=== PATIENT | female | born 1935 | race Caucasian/White ===

== ENCOUNTER 2021-07-23 14:47 | Inpatient (IN) | payer MEDICARE, OTHER ==
[~2021-07-23] VITALS: Ht 167.6 cm; Wt 43.0 kg
[2021-07-23 17:08] LABS: BASOPHILS % (AUTO) 0.7 % (0-1); EOSINOPHILS # (AUTO) 0.1 X10'3 (0-0.9); EOSINOPHILS % (AUTO) 1.3 % (0-6); HEMATOCRIT 37.9 % (35.0-45.0); HEMOGLOBIN 13.1 g/dl (12.0-16.0); LYMPHOCYTES % (AUTO) 15.5 % (21-51); MEAN CORPUSCULAR HEMOGLOBIN 34.2 PG (27.0-31.0); MEAN CORPUSCULAR HGB CONC 34.5 g/dL (33.0-36.5); MEAN PLATELET VOLUME 8.7 FL (7.4-10.4); MONOCYTES # (AUTO) 0.5 X10'3 (0-0.9); MONOCYTES % (AUTO) 8.2 % (2-12); NEUTROPHILS # (AUTO) 4.8 X10'3 (1.8-7.7); NEUTROPHILS % (AUTO) 74.3 % (42-75); PLATELET COUNT 205 X10'3 (140-440); RED BLOOD COUNT 3.83 X10'6 (4.20-5.60); RED CELL DISTRIBUTION WIDTH 12.8 % (11.5-14.5); WHITE BLOOD COUNT 6.4 X10'3 (4.5-11.0)
[2021-07-23 17:14] LABS: ALANINE AMINOTRANSFERASE 27 U/L (12-78); ALBUMIN/GLOBULIN RATIO 1.1 (1.1-1.5); ALKALINE PHOSPHATASE 72 IU/L (46-116); ANION GAP 8 (8-16); ASPARTATE AMINO TRANSFERASE 15 U/L (10-37); BILIRUBIN,TOTAL 1.6 MG/DL (0.1-1.0); BLOOD UREA NITROGEN 24 MG/DL (7-18); BUN/CREATININE RATIO 23.8 (6.6-38.0); CALCIUM 8.6 MG/DL (8.5-10.1); CHLORIDE 101 MMOL/L (99-107); CREATININE 1.01 MG/DL (0.40-0.90); GLUCOSE 90 MG/DL (70-104); POTASSIUM 3.8 MMOL/L (3.5-5.1); SODIUM 138 MMOL/L (135-145); TOTAL PROTEIN 7.8 G/DL (6.4-8.2); eGFR 52 ML/MIN
[2021-07-23 17:20] LABS: MAGNESIUM 2.4 MG/DL (1.5-2.4)
[2021-07-23 17:36] LABS: CLARITY,URINE SLIGHTLY CLOUDY (Clear); COLOR,URINE YELLOW (Yellow); GLUCOSE, URINE NEGATIVE (Neg); KETONES,URINE NEGATIVE (Neg); LEUKOCYTE ESTERASE ,URINE NEGATIVE (Neg); NITRITES, URINE NEGATIVE (Neg); OCCULT BLOOD,URINE NEGATIVE (Neg); PROTEIN,URINE NEGATIVE (Neg); UROBILINOGEN,URINE 0.2 E.U/dL (0.2-1.0)
[2021-07-23 17:38] LABS: UA COLLECTION TYPE VOIDED
[2021-07-23 17:46] LABS: BACTERIA,URINE NONE SEEN /HPF (Neg); MUCUS STRANDS FEW /LPF (Neg); RBC,URINE NONE SEEN /HPF (0-2); SQUAMOUS EPITHELIAL CELL,UR FEW /LPF (FEW); WBC,URINE 0-4 /HPF (0-4)
[2021-07-23 17:55] LABS: PARTIAL THROMBOPLASTIN TIME 28 SECONDS (22-32)
[2021-07-23] MEDS ORDERED: acetaminophen 325mg tablet PO PRN (17:55)
[2021-07-23] MEDS ORDERED: magnesium 4gm in 100ml NS 100 ML IV PRN (17:55)
[2021-07-23] MEDS ORDERED: ondansetron/PF 4mg/2ml inj IV PRN (17:55)
[2021-07-23] MEDS ORDERED: magnesium hydroxide 30ml (MOM) UD suspension PO PRN (17:55)
[2021-07-23] MEDS ORDERED: potassium CL 10mEq/100ml bag 100 ML IV PRN (17:55)
[2021-07-23] MEDS ORDERED: magnesium Cl slow-release 64mg tablet PO PRN (17:55)
[2021-07-23] MEDS ORDERED: mag hydrox/Alum hydrox/simeth 30ml oral suspension PO PRN (17:55)
[2021-07-23] MEDS ORDERED: magnesium 2GM in 50ml NS 50 ML IV PRN (17:55)
[2021-07-23] MEDS ORDERED: potassium Cl 20 mEq SR tablet PO PRN ×2 (17:55)
[2021-07-23] MEDS ORDERED: LEVO88TA2 PO (18:04)
[2021-07-23] MEDS: normal saline 1000ml 1,000 ML IV SCH (18:05)
--- NOTE | 2021-07-23 19:03 | NUR ---
CALLED SPOUSE, JOSEPHINE IN REGARDS TO AT HOME MEDS. LEFT A MESSAFE. WAITING FOR RESPONSE
--- NOTE | 2021-07-23 19:30 | NUR ---
Received report from [employer] SURGEONSANAZ Chavez. Patient to follow shortly.
[2021-07-23] MEDS: docusate sod 100mg capsule PO SCH (19:55)
[2021-07-23] MEDS: HYDROmorphone/PF 0.2 MG/ML SYRINGE IV PRN (19:56)
[2021-07-23] MEDS: K and/or MAG REPLACEMENT MC SCH (20:00)
[2021-07-23 22:00] VITALS: BP 119/77
[2021-07-24] VITALS (25 sets, daily range): BP systolic 124–169; BP diastolic 76–101
[2021-07-24] MEDS: normal saline 1000ml 1,000 ML IV SCH ×2 (03:48→14:04)
[2021-07-24] MEDS: HYDROmorphone/PF 0.2 MG/ML SYRINGE IV PRN (03:48)
[2021-07-24] MEDS ORDERED: SYN0.088T PO (04:37)
[2021-07-24 06:51] LABS: BASOPHILS % (AUTO) 0.5 % (0-1); EOSINOPHILS # (AUTO) 0.1 X10'3 (0-0.9); EOSINOPHILS % (AUTO) 1.1 % (0-6); HEMATOCRIT 32.8 % (35.0-45.0); HEMOGLOBIN 11.4 g/dl (12.0-16.0); LYMPHOCYTES % (AUTO) 12.4 % (21-51); MEAN CORPUSCULAR HEMOGLOBIN 34.8 PG (27.0-31.0); MEAN CORPUSCULAR HGB CONC 34.8 g/dL (33.0-36.5); MEAN PLATELET VOLUME 8.8 FL (7.4-10.4); MONOCYTES # (AUTO) 0.8 X10'3 (0-0.9); MONOCYTES % (AUTO) 9.7 % (2-12); NEUTROPHILS % (AUTO) 76.3 % (42-75); PLATELET COUNT 173 X10'3 (140-440); RED BLOOD COUNT 3.28 X10'6 (4.20-5.60); RED CELL DISTRIBUTION WIDTH 12.5 % (11.5-14.5); WHITE BLOOD COUNT 7.8 X10'3 (4.5-11.0)
[2021-07-24 07:08] LABS: ANION GAP 9 (8-16); BLOOD UREA NITROGEN 18 MG/DL (7-18); BUN/CREATININE RATIO 19.8 (6.6-38.0); CALCIUM 8.1 MG/DL (8.5-10.1); CHLORIDE 104 MMOL/L (99-107); CREATININE 0.91 MG/DL (0.40-0.90); GLUCOSE 95 MG/DL (70-104); SODIUM 138 MMOL/L (135-145); TOTAL CARBON DIOXIDE 25.5 MMOL/L (24-32); eGFR 58 ML/MIN
[2021-07-24] MEDS: enoxaparin 40mg/0.4ml syringe SUBCUT SCH (08:00)
[2021-07-24] MEDS: docusate sod 100mg capsule PO SCH ×2 (08:00→20:00)
[2021-07-24] MEDS: K and/or MAG REPLACEMENT MC SCH ×2 (08:27→20:00)
--- NOTE | 2021-07-24 10:22 | NUR ---
Noted pt with a low BMI of 15.4 however current documented wt of 43.18 kg is not scaled. Pt denied wt loss or decreased appetite per malnutrition risk screen with RN. No recent scaled wt hx in EMR and pt currently NPO. Per physical assessment pt with no edema and severe muscle weakness is localized to right leg, likely r/t pt admit for right femoral neck fracture. No concerns for malnutrition at this time. Recommend diet advancement to regular as medically indicated. Will continue to follow. Addendum: 07/24/21 at [address] Amended: Links added.
[2021-07-24] MEDS ORDERED: LEVO75TA PO (10:46)
[2021-07-24] MEDS: levoTHYROXINE 75mcg tablet PO SCH (12:21)
[2021-07-24] MEDS ORDERED: ringers solution, lacted 1,000 ML IV SCH (15:30)
[2021-07-24] MEDS ORDERED: ondansetron/PF 4mg/2ml inj IV PRN (15:30)
[2021-07-24] MEDS ORDERED: meperidine/PF 25mg/ml syringe IV PRN ×3 (15:30)
[2021-07-24] MEDS ORDERED: morphine 4 MG/ML inj SYRINge IV PRN (15:30)
[2021-07-24] MEDS ORDERED: proCHLORperazine 10 MG/2 ml inj IV PRN (15:30)
[2021-07-24] MEDS ORDERED: morphine 2 MG/ML inj. syringe IV PRN (15:30)
[2021-07-24] MEDS ORDERED: fentaNYL/PF 50MCG/1 ML 2ML syringe ONE (15:49)
[2021-07-24] MEDS ORDERED: midazolam 1 mg/ML 2ml injection ONE (15:49)
[2021-07-24] MEDS ORDERED: ceFAZolin 1000mg inj ONE (16:08)
--- NOTE | 2021-07-24 16:30 | NUR ---
Received from OR via , accompanied by Anesthesiologist DR STERN and report given by Anesthesiolgist. PT PRESENTS WITH 20G RIGHT FOREARM, RIGHT HIP DRESSING DRY AND INTACT, VSS. Addendum: 07/24/21 at 1642 by Eliana Olivares RN, RN Amended: Links added.
--- NOTE | 2021-07-24 16:53 | NUR ---
PT'S [facility]SEPH[facility] HOME CELL . I TRIED TO CALL BOTH NUMBER WITH NO ANSWER. Addendum: 07/24/21 at 1658 by Eliana Olivares RN, RN Amended: Links added.
--- NOTE | 2021-07-24 18:00 | NUR ---
I CALLED PT'S WITH UPDATE ON PT. Addendum: 07/24/21 at 1821 by Eliana Olivares RN RN Amended: Links added.
--- NOTE | 2021-07-24 18:00 | NUR ---
Report called to receiving nurse BINH YO. Transferred via HOSPITAL BED RETURNING TO PT ROOM 357A, PT Belongings WERE LEFT IN PT ROOM 357A. Special Issues communicated to receiving nurse. Addendum: 07/24/21 at 1809 by Eliana Olivares RN RN Amended: Links added.
[2021-07-24] MEDS: HYDROmorphone inj. 0.5 MG/0.5 ML DISP.SYRIN IV PRN (20:33)
[2021-07-25] VITALS: BP 141/86
[2021-07-25] MEDS: ceFAZolin/D5W- 1GM premix 50 ML IV SCH ×2 (01:31→07:47)
[2021-07-25] MEDS: normal saline 1000ml 1,000 ML IV SCH ×2 (01:32→08:01)
[2021-07-25 04:00] VITALS: BP 143/89
--- NOTE | 2021-07-25 06:19 | NUR ---
Problems reprioritized. Patient report given, questions answered & plan of care reviewed with Dusty YO.
--- NOTE | 2021-07-25 06:21 | NUR ---
Patient in room [facility]. I have received report from ISIS YO and had the opportunity to ask questions and assume patient care.
[2021-07-25 06:22] LABS: BASOPHILS % (AUTO) 0.6 % (0-1); EOSINOPHILS # (AUTO) 0.1 X10'3 (0-0.9); EOSINOPHILS % (AUTO) 1.1 % (0-6); HEMATOCRIT 33.8 % (35.0-45.0); HEMOGLOBIN 11.5 g/dl (12.0-16.0); LYMPHOCYTES # (AUTO) 0.6 X10'3 (1.1-4.8); MEAN CORPUSCULAR HEMOGLOBIN 34.1 PG (27.0-31.0); MEAN CORPUSCULAR HGB CONC 34.2 g/dL (33.0-36.5); MEAN CORPUSCULAR VOLUME 99.7 FL (78-98); MEAN PLATELET VOLUME 8.8 FL (7.4-10.4); MONOCYTES # (AUTO) 0.5 X10'3 (0-0.9); MONOCYTES % (AUTO) 8.2 % (2-12); NEUTROPHILS # (AUTO) 4.9 X10'3 (1.8-7.7); NEUTROPHILS % (AUTO) 80.1 % (42-75); PLATELET COUNT 183 X10'3 (140-440); RED BLOOD COUNT 3.39 X10'6 (4.20-5.60); RED CELL DISTRIBUTION WIDTH 12.2 % (11.5-14.5); WHITE BLOOD COUNT 6.2 X10'3 (4.5-11.0)
[2021-07-25 06:39] LABS: ALBUMIN 2.9 G/DL (3.4-5.0); ANION GAP 13 (8-16); BLOOD UREA NITROGEN 19 MG/DL (7-18); BUN/CREATININE RATIO 20.9 (6.6-38.0); CALCIUM 8.1 MG/DL (8.5-10.1); CHLORIDE 103 MMOL/L (99-107); CREATININE 0.91 MG/DL (0.40-0.90); GLUCOSE 84 MG/DL (70-104); SODIUM 138 MMOL/L (135-145); TOTAL CARBON DIOXIDE 21.8 MMOL/L (24-32); eGFR 58 ML/MIN
[2021-07-25] MEDS: levoTHYROXINE 75mcg tablet PO SCH (07:47)
[2021-07-25] MEDS: docusate sod 100mg capsule PO SCH ×2 (07:47→20:00)
[2021-07-25] MEDS: enoxaparin 40mg/0.4ml syringe SUBCUT SCH (07:48)
[2021-07-25] MEDS: K and/or MAG REPLACEMENT MC SCH ×2 (08:00→20:00)
[2021-07-25 09:02] VITALS: BP 151/93
[2021-07-25] MEDS ORDERED: normal saline 500ml IV soln 500 ML IV ONE (11:40)
[2021-07-25] MEDS ORDERED: traMADol 50MG tablet PO PRN (11:40)
[2021-07-25 11:56] VITALS: BP 151/98
[2021-07-25] MEDS: traMADol 50MG tablet PO PRN (12:12)
--- NOTE | 2021-07-25 12:38 | NUR ---
per mark wants to dc martha livingston with nursing, will pass this along to night nurse.
--- NOTE | 2021-07-25 16:32 | NUR ---
talked with mark, pt received tramadol due to pain possible related to high BP, got pt up from chair to go to bed and seemed to have been slightly out of it possible due to the tramadol. asked if i could do Tylenol for pain related to tramadol being to much for the pt. pt has generalized weakness and sleepy. charge nurse did a neuro assessment and pt did not show any signs of weakness on one side or the other. pt is stable.
[2021-07-25] MEDS ORDERED: acetaminophen 325mg tablet PO PRN (16:50)
--- NOTE | 2021-07-25 17:40 | NUR ---
DC thomas per MD orders. Placed clean wick per primary nurse.
--- NOTE | 2021-07-25 18:24 | NUR ---
Problems reprioritized. Patient report given, questions answered & plan of care reviewed with Melita javier.
--- NOTE | 2021-07-25 18:30 | NUR ---
Patient in room [facility]. I have received report from SANAZ Morales and had the opportunity to ask questions and assume patient care. Addendum: 07/25/21 at 1935 by Arti Zelaya RN Amended: Links added.
[2021-07-25 19:00] VITALS: BP 156/85
[2021-07-26] MEDS: HYDROmorphone inj. 0.5 MG/0.5 ML DISP.SYRIN IV PRN ×2 (00:26→04:32)
[2021-07-26] MEDS: normal saline 1000ml 1,000 ML IV SCH ×2 (00:27→05:55)
[2021-07-26 00:30] VITALS: BP 165/89
--- NOTE | 2021-07-26 04:37 | NUR ---
pleasantly confused, Addendum: 07/26/21 at 0437 by Arti Zelaya RN Amended: Links added.
--- NOTE | 2021-07-26 06:11 | NUR ---
Problems reprioritized. Patient report given, questions answered & plan of care reviewed with SANAZ Earl. Addendum: 07/26/21 at 0612 by Arti Zelaya RN Amended: Links added.
--- NOTE | 2021-07-26 06:25 | NUR ---
Problems reprioritized. Patient report given, questions answered & plan of care reviewed with SANAZ Sam. Addendum: 07/26/21 at 0626 by Arti Zelaya RN Amended: Links added.
[2021-07-26 06:36] LABS: BASOPHILS % (AUTO) 0.5 % (0-1); EOSINOPHILS # (AUTO) 0.1 X10'3 (0-0.9); EOSINOPHILS % (AUTO) 1.4 % (0-6); HEMATOCRIT 32.1 % (35.0-45.0); HEMOGLOBIN 11.4 g/dl (12.0-16.0); LYMPHOCYTES # (AUTO) 0.7 X10'3 (1.1-4.8); LYMPHOCYTES % (AUTO) 12.4 % (21-51); MEAN CORPUSCULAR HEMOGLOBIN 34.6 PG (27.0-31.0); MEAN CORPUSCULAR HGB CONC 35.4 g/dL (33.0-36.5); MEAN CORPUSCULAR VOLUME 97.7 FL (78-98); MEAN PLATELET VOLUME 8.6 FL (7.4-10.4); MONOCYTES # (AUTO) 0.5 X10'3 (0-0.9); MONOCYTES % (AUTO) 9.1 % (2-12); NEUTROPHILS # (AUTO) 4.6 X10'3 (1.8-7.7); NEUTROPHILS % (AUTO) 76.6 % (42-75); PLATELET COUNT 193 X10'3 (140-440); RED BLOOD COUNT 3.29 X10'6 (4.20-5.60); RED CELL DISTRIBUTION WIDTH 12.3 % (11.5-14.5)
--- NOTE | 2021-07-26 06:38 | NUR ---
Patient in room [facility]. I have received report from whitney javier and had the opportunity to ask questions and assume patient care.
[2021-07-26 06:44] LABS: ANION GAP 11 (8-16); BLOOD UREA NITROGEN 17 MG/DL (7-18); BUN/CREATININE RATIO 20.2 (6.6-38.0); CALCIUM 8.2 MG/DL (8.5-10.1); CHLORIDE 102 MMOL/L (99-107); CREATININE 0.84 MG/DL (0.40-0.90); GLUCOSE 94 MG/DL (70-104); POTASSIUM 3.7 MMOL/L (3.5-5.1); SODIUM 136 MMOL/L (135-145); TOTAL CARBON DIOXIDE 23.1 MMOL/L (24-32); eGFR 64 ML/MIN
[2021-07-26 07:04] VITALS: BP 150/78
[2021-07-26] MEDS: K and/or MAG REPLACEMENT MC SCH (07:23)
[2021-07-26] MEDS: docusate sod 100mg capsule PO SCH (07:48)
[2021-07-26] MEDS ORDERED: levoTHYROXINE 100mcg tablet PO SCH (08:00)
[2021-07-26] MEDS: enoxaparin 40mg/0.4ml syringe SUBCUT SCH (08:12)
[2021-07-26] MEDS: traMADol 50MG tablet PO PRN (10:10)
[2021-07-26 13:10] VITALS: BP 124/84
--- NOTE | 2021-07-26 14:11 | NUR ---
PT DISCHARGED TO [facility]. ATTEMPTED TO CALL REPORT, NO ANSWER FROM [facility].
--- NOTE | 2021-07-26 14:13 | NUR ---
PT DISCHARGED IN STABLE TO CONDITION TO [facility]. IV DC CANULA INTACT. ALL BELONGINGS SENT WITH PT. Addendum: 07/26/21 at 1413 by Selena Mitchell RN Amended: Links added.
== END 2021-07-26 14:01 | DRG 481 ==
LOC: ER 14:47 → SUR 3N 17:57 → UNDOADMIN 17:57 → ER 17:57 → SUR 3N 20:19
PROVIDERS: ADMIT Family Medicine; ATTEND Family Medicine
PROC: 0QH634Z Insertion of Internal Fixation Device into Right Upper Femur, Percutaneous Approach (ICD-10-PCS; principal; 2021-07-24 15:38)
DX: S72.001A Fracture of unspecified part of neck of right femur, initial encounter for closed fracture (principal); E46 Unspecified protein-calorie malnutrition; Z68.1 Body mass index [BMI] 19.9 or less, adult; Z20.822 Contact with and (suspected) exposure to COVID-19; E03.9 Hypothyroidism, unspecified; F03.90 Unspecified dementia, unspecified severity, without behavioral disturbance, psychotic disturbance, mood disturbance, and anxiety; W18.39XA Other fall on same level, initial encounter; I48.91 Unspecified atrial fibrillation; K21.9 Gastro-esophageal reflux disease without esophagitis; R13.10 Dysphagia, unspecified; R55 Syncope and collapse; Z79.890 Hormone replacement therapy; Z90.710 Acquired absence of both cervix and uterus; Y93.89 Activity, other specified; Y92.098 Other place in other non-institutional residence as the place of occurrence of the external cause; Y99.8 Other external cause status
CPT/HCPCS: 36415; 36569; 70450; 71045; 73502; 76000; 76937; 80048; 80053; 81001; 82948; 83735; 83880; 84443; 84484; 85025; 85610; 85730; 87081; 87635; 92508; 92616; 93005; 97110; 97161; 97530; 99285; A4618; A6258; A7000; C1713; G0378; J0690; J1170; J1650; J2250; J3010; J7030; J7040; J7120